=== PATIENT | female | born 2000 | race American Indian/Alaskan Native ===

== ENCOUNTER 2021-08-03 23:54 | Outpatient (CLI) | payer OTHER ==
[2021-08-04] MEDS ORDERED: LACTATED RINGERS 500 ML IV ONE (00:14)
[2021-08-04 00:18] VITALS: BP 110/74
== END 2021-08-04 00:31 | disposition home or self-care (01) ==
LOC: TRG 23:54 → APU 23:56 → TRG 08-04 00:31
PROVIDERS: ATTEND Obstetrics & Gynecology Gynecology
DX: O46.92 Antepartum hemorrhage, unspecified, second trimester (principal); Z3A.22 22 weeks gestation of pregnancy
CPT/HCPCS: 59025